=== PATIENT | male | born 1990 | race Caucasian/White ===

== ENCOUNTER 2018-07-25 09:11 | Emergency (ER) | payer OTHER ==
[~2018-07-25] VITALS: Ht 170.2 cm; Wt 90.7 kg
[~2018-07-25 09:11] MED LIST: ACETAMINOPHEN-1 EAC1 PO; AMOXICILLIN875 MG PO; MOBIC7.5 MG PO; NORCO 5-325 TA1 EAC1 PO
[2018-07-25] MEDS ORDERED: PENICILLIN VK500 MG PO (09:36)
[2018-07-25] MEDS ORDERED: IBUPROFEN 800800 MG PO (09:36)
[2018-07-25 09:55] VITALS: BP 160/88
== END 2018-07-25 09:55 | disposition home or self-care (01) ==
LOC: M.ERS 09:11
DX: G89.29 Other chronic pain (principal); K08.89 Other specified disorders of teeth and supporting structures; F17.210 Nicotine dependence, cigarettes, uncomplicated

== ENCOUNTER 2019-01-21 12:02 | Emergency (ER) | payer OTHER ==
[~2019-01-21] VITALS: Ht 170.2 cm; Wt 100.7 kg
[~2019-01-21 12:02] MED LIST changes: +IBUPROFEN 800800 MG PO; +PENICILLIN VK500 MG PO
[2019-01-21] MEDS ORDERED: CYCLOBENZAPRINE5 MG PO (13:29)
[2019-01-21] MEDS ORDERED: NAPROSYN500 MG PO (13:29)
[2019-01-21 13:37] VITALS: BP 146/99
== END 2019-01-21 13:38 | disposition home or self-care (01) ==
LOC: M.ERS 12:02
DX: S76.811A Strain of other specified muscles, fascia and tendons at thigh level, right thigh, initial encounter (principal); F17.210 Nicotine dependence, cigarettes, uncomplicated; X50.9XXA Other and unspecified overexertion or strenuous movements or postures, initial encounter; Y93.61 Activity, american tackle football; Y92.89 Other specified places as the place of occurrence of the external cause; Y99.8 Other external cause status